=== PATIENT | male | born 1940 | race Caucasian/White ===

== ENCOUNTER → 2018-03-27 | Outpatient (CLI) | payer BC ==
[~2018-03-27] MED LIST: AMIT25TA9 PO; ASPI-555 PO; DULO60CA63 PO; FOLI1TAB15 PO; GABA-318 PO; LORA1TAB3 PO; METO-409 PO; NIFE60TA81 PO; PREG50 PO; ROSU20TA30 PO
== END | disposition home or self-care (01) ==
LOC: SHCH 07:47
PROVIDERS: ATTEND Internal Medicine Cardiovascular Disease
DX: I70.0 Atherosclerosis of aorta (principal); I10 Essential (primary) hypertension; Z72.89 Other problems related to lifestyle
CPT/HCPCS: 93975

== ENCOUNTER 2018-08-14 06:47 | Day surgery (SDC) | payer BC ==
[2018-08-08 10:10] LABS: BASOPHILS % (AUTO) 1.5 % (0.0-5.0); EOSINOPHILS % (AUTO) 3.8 % (0.0-8.0); HEMATOCRIT 39.6 % (42-54); LYMPHOCYTES % (AUTO) 26.3 % (21.0-51.0); MEAN CORPUSCULAR HEMOGLOBIN 33.8 pg (27.0-33.0); MEAN CORPUSCULAR HGB CONC 34.5 g/dL (32.0-36.0); MONOCYTES % (AUTO) 12.3 % (3.0-13.0); NEUTROPHILS % (AUTO) 56.1 % (40.0-77.0); PLATELET COUNT (AUTO) 203 K/uL (130-400); RED BLOOD CELL COUNT(AUTO) 4.04 MIL/uL (4.50-6.20); RED CELL DISTRIBUTION WIDTH 12.9 % (11.0-15.5); WHITE BLOOD COUNT (AUTO) 4.2 K/uL (4.8-10.8)
[2018-08-08 10:17] LABS: CREATININE 0.9 mg/dL (0.5-1.5); POTASSIUM 4.4 mmol/L (3.5-5.1)
[2018-08-08 11:07] VITALS: BP 140/72
--- NOTE | 2018-08-08 11:21 | NUR ---
NURSING: REPORTED ABNORMAL EKG TO ANESTHESIA , NO NEW ORDERS RECEIVED, OK TO PROCEED.
[2018-08-14] VITALS (11 sets, daily range): BP systolic 133–159; BP diastolic 59–81
[~2018-08-14] VITALS: Ht 162.6 cm; Wt 80.3 kg
[2018-08-14] MEDS: CEFAZOLIN SODIUM 1 GM VIAL IVP SCH ×2 (05:00→09:00)
[~2018-08-14 06:47] MED LIST changes: -AMIT25TA9 PO; -GABA-318 PO; +VENL75TA63 PO
[2018-08-14] MEDS ORDERED: LACTATED RINGERS 1000ML 1,000 ML IV ONE (07:56)
[2018-08-14] MEDS ORDERED: MIDAZOLAM HCL 1 MG/ML 2ML VIAL ONE (08:38)
[2018-08-14] MEDS ORDERED: FENTANYL CITRATE PF 50 MCG/1 ML 2ML VIAL ONE (08:39)
--- NOTE | 2018-08-14 11:15 | NUR ---
PATIENT DISCHARGED IN NO DISTRESS, DRESSING TO RIGHT HAND IS CLEAN AND DRY. PATIENT STATES FEELING WELL. JUST CAME IN TO TAKE HIM HOME.
== END 2018-08-14 11:15 | disposition home or self-care (01) ==
LOC: DAH 06:47
PROVIDERS: ATTEND Neurological Surgery
DX: G56.01 Carpal tunnel syndrome, right upper limb (principal); Z98.890 Other specified postprocedural states; K21.9 Gastro-esophageal reflux disease without esophagitis; I10 Essential (primary) hypertension; Z79.899 Other long term (current) drug therapy; I45.10 Unspecified right bundle-branch block
CPT/HCPCS: 36415; 64721; 80048; 85025; 93005; A4218; J0690; J2250; J3010; J7120

== ENCOUNTER 2019-11-17 08:23 | Emergency (ER) | payer BC, MEDICARE ==
[~2019-11-17 08:23] MED LIST changes: -ASPI-555 PO; +CLON0.1T PO; +DULO60CA44 PO; -DULO60CA63 PO; -LORA1TAB3 PO; +LORA2TAB2 PO; +METO50TA18 PO; +NIFE30TA5 PO; -NIFE60TA81 PO; -ROSU20TA30 PO; +ROSU20TA31 PO; +VENL-61 PO; -VENL75TA63 PO
[2019-11-17] MEDS ORDERED: METHYLPREDNISOLONE SOD SUCC 125MG/2ML VIAL ONE (10:04)
[2019-11-17] MEDS ORDERED: AMPICILLIN SODIUM/SULBACTAM NA 1.5GM VIAL ONE (11:22)
[2019-11-17] MEDS ORDERED: SODIUM CHLORIDE 0.9% 100 ML IV ONE (11:23)
== END 2019-11-17 10:29 | disposition home or self-care (01) ==
LOC: EDH 08:23
DX: M25.462 Effusion, left knee (principal); M23.92 Unspecified internal derangement of left knee; I10 Essential (primary) hypertension; E78.00 Pure hypercholesterolemia, unspecified; Z87.891 Personal history of nicotine dependence
CPT/HCPCS: 73562; 96372; 99284; J0295; J2930

== ENCOUNTER → 2020-04-02 | Outpatient (CLI) | payer BC | END | disposition home or self-care (01) | LOC: SHCH 09:33 | PROVIDERS: ATTEND Internal Medicine Cardiovascular Disease | DX: I70.203 Unspecified atherosclerosis of native arteries of extremities, bilateral legs (principal) | CPT/HCPCS: 93925 ==

== ENCOUNTER → 2020-08-03 | Outpatient (CLI) | payer BC ==
[~2020-08-03] MED LIST changes: +VENL-191 PO; -VENL-61 PO
== END | disposition home or self-care (01) ==
LOC: SHCH 09:24
PROVIDERS: ATTEND Internal Medicine Cardiovascular Disease
DX: I10 Essential (primary) hypertension (principal)
CPT/HCPCS: 93975

== ENCOUNTER 2020-08-13 12:00 | Inpatient (IN) | payer BC ==
[~2020-08-13] VITALS: Ht 167.6 cm; Wt 78.6 kg
[2020-08-13 10:44] LABS: BASOPHILS % (AUTO) 0.9 % (0.0-5.0); EOSINOPHILS % (AUTO) 2.7 % (0.0-8.0); HEMATOCRIT 42.1 % (42-54); MONOCYTES % (AUTO) 11.4 % (3.0-13.0); NEUTROPHILS % (AUTO) 63.7 % (40.0-77.0); PLATELET COUNT (AUTO) 251 K/uL (130-400); RED BLOOD CELL COUNT(AUTO) 4.34 MIL/uL (4.50-6.20); WHITE BLOOD COUNT (AUTO) 5.9 K/uL (4.8-10.8)
[2020-08-13 10:53] LABS: CREATININE 0.9 mg/dL (0.5-1.5); POTASSIUM 4.4 mmol/L (3.5-5.1)
[~2020-08-13 12:00] MED LIST changes: -CLON0.1T PO; -DULO60CA44 PO; +DULO60CA45 PO; -METO-409 PO; -PREG50 PO; -ROSU20TA31 PO; -VENL-191 PO
[2020-08-18 11:26] VITALS: BP 136/66
[2020-08-18] MEDS ORDERED: VENL75TA89 PO (13:30)
[2020-08-18] MEDS ORDERED: MELA10TA2 PO (13:30)
[2020-08-18] MEDS ORDERED: ALPH600C3 PO (13:30)
[2020-08-18] MEDS ORDERED: ASCO100031 PO (13:30)
[2020-08-18] MEDS ORDERED: ZINC220T4 PO (13:30)
[2020-08-18] MEDS ORDERED: MAGN400T40 PO (13:30)
[2020-08-18] MEDS ORDERED: ASPI-1443 PO (13:30)
[2020-08-18] MEDS ORDERED: VITAMIN B6 PO (13:30)
[2020-08-18] MEDS ORDERED: TUMERIC EXTRACT PO (13:30)
[2020-08-18] MEDS ORDERED: VITAMIN B12 PO (13:30)
[2020-08-19] VITALS (19 sets, daily range): BP systolic 107–163; BP diastolic 45–78
[2020-08-19] MEDS ORDERED: LACTATED RINGERS 1000ML 1,000 ML IV ONE (09:16)
[2020-08-19] MEDS ORDERED: PREG150C PO (09:29)
[2020-08-19] MEDS: CEFAZOLIN SODIUM 1 GM VIAL ONE ×2 (14:26→15:30)
[2020-08-19] MEDS ORDERED: LIDOCAINE PF 100MG/5ML (2%) SYRINGE 5ML ONE (15:19)
[2020-08-19] MEDS ORDERED: SUCCINYLCHOLINE CHLORIDE 20 MG/ML 10 ML VIAL ONE (15:19)
[2020-08-19] MEDS ORDERED: ROCURONIUM 10MG/1ML SYR 10 MG/ML ML ONE ×2 (15:19→16:52)
[2020-08-19] MEDS ORDERED: PROPOFOL 10 MG/ML 20ML VIAL IV ONE (15:19)
[2020-08-19] MEDS ORDERED: CEFAZOLIN SODIUM 1 GM VIAL ONE ×2 (15:23→16:37)
[2020-08-19] MEDS ORDERED: ROPIVACAINE 0.5% 5MG/ML 30ML IJ ONE (15:29)
[2020-08-19] MEDS ORDERED: EPHEDRINE SULFATE 50 MG/ML AMPULE ONE (15:36)
[2020-08-19] MEDS ORDERED: GLYCOPYRROLATE 1 MG/5 ML SYRINGE ONE (15:43)
[2020-08-19] MEDS ORDERED: NEOSTIGMINE 5MG/5ML SYR IV ONE (15:43)
[2020-08-19] MEDS ORDERED: DEXAMETHASONE SOD PHOSPHATE 10MG/ML 1ML VIAL ONE (15:47)
[2020-08-19] MEDS ORDERED: ONDANSETRON 4MG INJ ONE (15:47)
[2020-08-19] MEDS ORDERED: FENTANYL CITRATE PF 50 MCG/1 ML 2ML VIAL ONE (16:06)
[2020-08-19] MEDS ORDERED: PHENYLEPHRINE HCL 10 MG/ML 1ML VIAL IV ONE (16:47)
[2020-08-19] MEDS ORDERED: LIDOCAINE HCL-MPF 1% 2ML VIAL IV PRN (19:30)
[2020-08-19] MEDS ORDERED: POTASSIUM CHLORIDE 20MEQ/100ML 100 ML IV PRN (19:30)
[2020-08-19] MEDS ORDERED: CALCIUM CARB 500MG PO PRN (19:30)
[2020-08-19] MEDS ORDERED: OXYCODONE HCL 5 MG TAB PO PRN ×2 (19:30)
[2020-08-19] MEDS: ACETAMINOPHEN 500 MG TABLET PO SCH (19:30)
[2020-08-19] MEDS ORDERED: TRAMADOL HCL 50 MG TABLET PO PRN (19:30)
[2020-08-19] MEDS ORDERED: KCL 20 MEQ ERTAB PO PRN (19:30)
[2020-08-19] MEDS ORDERED: TEMAZEPAM 15 MG CAPSULE PO PRN (19:30)
[2020-08-19] MEDS ORDERED: FERROUS FUMARATE 324 MG TABLET PO PRN (19:30)
[2020-08-19] MEDS ORDERED: POTASSIUM CHLORIDE 10% ELIXIR 20 MEQ/15 ML UDCUP PO PRN (19:30)
[2020-08-19] MEDS: 0.9%NACL 1000ML 1,000 ML IV SCH (19:30)
[2020-08-19] MEDS ORDERED: DiphenhydrAMINE HCL 50 MG/ML VIAL IVP PRN (19:30)
[2020-08-19] MEDS ORDERED: PROMETHAZINE HCL 25 MG/ML 1ML AMPULE IM PRN (19:30)
[2020-08-19] MEDS ORDERED: DIPHENHYDRAMINE HCL 25 MG CAPSULE PO PRN (19:30)
[2020-08-19] MEDS ORDERED: KETOROLAC 15MG/ML VIAL (15MG/ML) IV PRN (19:30)
[2020-08-19] MEDS: CEFAZOLIN SODIUM 1 GM VIAL IVP SCH (19:30)
[2020-08-19] MEDS ORDERED: PREGABALIN 100 MG CAPSULE PO PRN (21:15)
[2020-08-19] MEDS: FAMOTIDINE 20MG TAB PO SCH (22:01)
[2020-08-19] MEDS: CELECOXIB 200 MG CAP PO SCH (22:01)
[2020-08-20 04:00] VITALS: BP 113/71
[2020-08-20] MEDS: CEFAZOLIN SODIUM 1 GM VIAL IVP SCH (04:06)
[2020-08-20] MEDS: 0.9%NACL 1000ML 1,000 ML IV SCH ×2 (04:06→15:30)
[2020-08-20] MEDS: ACETAMINOPHEN 500 MG TABLET PO SCH ×3 (04:06→20:44)
[2020-08-20 05:07] LABS: HEMATOCRIT 35.5 % (42-54); MEAN CORPUSCULAR HEMOGLOBIN 31.5 pg (27.0-33.0); MEAN CORPUSCULAR VOLUME 95.7 fL (79-99); RED BLOOD CELL COUNT(AUTO) 3.71 MIL/uL (4.50-6.20); RED CELL DISTRIBUTION WIDTH 13.7 % (11.0-15.5); WHITE BLOOD COUNT (AUTO) 8.3 K/uL (4.8-10.8)
[2020-08-20 05:19] LABS: CREATININE 1.1 mg/dL (0.5-1.5)
[2020-08-20 08:06] VITALS: BP 190/84
[2020-08-20] MEDS: ZINC SULFATE 50 MG PO SCH (09:00)
[2020-08-20] MEDS: PYRIDOXINE HCL 50 MG TABLET PO SCH (09:00)
[2020-08-20] MEDS: ASCORBIC ACID 500 MG TAB PO SCH (09:26)
[2020-08-20] MEDS: MAGNESIUM OXIDE 400 MG TABLET PO SCH ×2 (09:26→20:45)
[2020-08-20] MEDS: FOLIC ACID 1 MG TABLET PO SCH (09:26)
[2020-08-20] MEDS: METOPROLOL TARTRATE 50 MG TAB PO SCH ×2 (09:26→20:45)
[2020-08-20] MEDS: NIFEDIPINE ER 30 MG TAB PO SCH ×2 (09:27→20:45)
[2020-08-20] MEDS: FAMOTIDINE 20MG TAB PO SCH ×2 (09:27→20:45)
[2020-08-20] MEDS: ENOXAPARIN SODIUM 40 MG/0.4 ML SYRINGE SQ SCH (09:27)
[2020-08-20] MEDS: CELECOXIB 200 MG CAP PO SCH ×2 (09:27→20:45)
[2020-08-20] MEDS: TAMSULOSIN HCL 0.4 MG CAP.ER.24H PO SCH (09:27)
[2020-08-20] MEDS: VENLAFAXINE HCL 75 MG TAB PO SCH ×2 (09:27→20:45)
[2020-08-20] MEDS: POLYETHYLENE GLYCOL 3350 17 GM POWD.PACK PO SCH (09:27)
[2020-08-20 11:57] VITALS: BP 150/72
[2020-08-20] MEDS: PSYLLIUM SEED 1 EACH PACKET PO SCH (12:00)
[2020-08-20 16:00] VITALS: BP 161/71
[2020-08-20 20:00] VITALS: BP 134/64
[2020-08-20] MEDS: **HM**(Melatonin 10 MG PO SCH (20:44)
[2020-08-20] MEDS: ALPHA LIPOIC ACID 600 MG PO SCH (20:44)
[2020-08-20] MEDS: ASPIRIN 81 MG EC TAB PO SCH (20:44)
[2020-08-20] MEDS: DULOXETINE HCL 30 MG CAP PO SCH (20:45)
[2020-08-20] MEDS: LORAZEPAM 2 MG TABLET PO SCH (20:45)
[2020-08-21] VITALS (8 sets, daily range): BP systolic 91–156; BP diastolic 42–75
[2020-08-21] MEDS: ACETAMINOPHEN 500 MG TABLET PO SCH ×3 (04:03→19:30)
[2020-08-21 05:10] LABS: HEMATOCRIT 35.9 % (42-54); MEAN CORPUSCULAR HEMOGLOBIN 31.2 pg (27.0-33.0); MEAN CORPUSCULAR HGB CONC 32.3 g/dL (32.0-36.0); MEAN CORPUSCULAR VOLUME 96.5 fL (79-99); RED BLOOD CELL COUNT(AUTO) 3.72 MIL/uL (4.50-6.20); RED CELL DISTRIBUTION WIDTH 13.7 % (11.0-15.5); WHITE BLOOD COUNT (AUTO) 5.6 K/uL (4.8-10.8)
[2020-08-21 05:27] LABS: CREATININE 0.9 mg/dL (0.5-1.5); POTASSIUM 3.5 mmol/L (3.5-5.1)
[2020-08-21] MEDS: ZINC SULFATE 50 MG PO SCH (09:00)
[2020-08-21] MEDS: ASCORBIC ACID 500 MG TAB PO SCH (10:25)
[2020-08-21] MEDS: PYRIDOXINE HCL 50 MG TABLET PO SCH (10:25)
[2020-08-21] MEDS: CELECOXIB 200 MG CAP PO SCH ×2 (10:25→21:36)
[2020-08-21] MEDS: TAMSULOSIN HCL 0.4 MG CAP.ER.24H PO SCH (10:25)
[2020-08-21] MEDS: METOPROLOL TARTRATE 50 MG TAB PO SCH ×2 (10:25→20:20)
[2020-08-21] MEDS: MAGNESIUM OXIDE 400 MG TABLET PO SCH ×2 (10:25→21:36)
[2020-08-21] MEDS: FAMOTIDINE 20MG TAB PO SCH ×2 (10:25→21:36)
[2020-08-21] MEDS: POLYETHYLENE GLYCOL 3350 17 GM POWD.PACK PO SCH (10:25)
[2020-08-21] MEDS: FOLIC ACID 1 MG TABLET PO SCH (10:25)
[2020-08-21] MEDS: VENLAFAXINE HCL 75 MG TAB PO SCH ×2 (10:26→21:36)
[2020-08-21] MEDS: NIFEDIPINE ER 30 MG TAB PO SCH ×2 (10:26→20:20)
[2020-08-21] MEDS: ENOXAPARIN SODIUM 40 MG/0.4 ML SYRINGE SQ SCH (10:27)
[2020-08-21] MEDS: PSYLLIUM SEED 1 EACH PACKET PO SCH (12:00)
[2020-08-21] MEDS ORDERED: BISACODYL 5 MG TABLET.DR PO PRN (19:30)
[2020-08-21] MEDS: **HM**(Melatonin 10 MG PO SCH (20:20)
[2020-08-21] MEDS: ALPHA LIPOIC ACID 600 MG PO SCH (21:00)
[2020-08-21] MEDS: LORAZEPAM 2 MG TABLET PO SCH (21:00)
[2020-08-21] MEDS: DULOXETINE HCL 30 MG CAP PO SCH (21:36)
[2020-08-21] MEDS: ASPIRIN 81 MG EC TAB PO SCH (21:36)
[2020-08-22 04:00] VITALS: BP 161/82
[2020-08-22] MEDS: ACETAMINOPHEN 500 MG TABLET PO SCH ×3 (04:01→20:34)
[2020-08-22 08:04] VITALS: BP 161/72
[2020-08-22] MEDS: POLYETHYLENE GLYCOL 3350 17 GM POWD.PACK PO SCH (09:00)
[2020-08-22] MEDS: ZINC SULFATE 50 MG PO SCH (09:00)
[2020-08-22] MEDS: CELECOXIB 200 MG CAP PO SCH ×2 (10:25→20:34)
[2020-08-22] MEDS: METOPROLOL TARTRATE 50 MG TAB PO SCH ×2 (10:25→20:38)
[2020-08-22] MEDS: PYRIDOXINE HCL 50 MG TABLET PO SCH (10:25)
[2020-08-22] MEDS: ASCORBIC ACID 500 MG TAB PO SCH (10:25)
[2020-08-22] MEDS: MAGNESIUM OXIDE 400 MG TABLET PO SCH ×2 (10:26→20:34)
[2020-08-22] MEDS: NIFEDIPINE ER 30 MG TAB PO SCH ×2 (10:26→20:39)
[2020-08-22] MEDS: FOLIC ACID 1 MG TABLET PO SCH (10:26)
[2020-08-22] MEDS: VENLAFAXINE HCL 75 MG TAB PO SCH ×2 (10:26→20:35)
[2020-08-22] MEDS: ENOXAPARIN SODIUM 40 MG/0.4 ML SYRINGE SQ SCH (10:26)
[2020-08-22] MEDS: TAMSULOSIN HCL 0.4 MG CAP.ER.24H PO SCH (10:26)
[2020-08-22] MEDS: FAMOTIDINE 20MG TAB PO SCH ×2 (10:26→20:39)
[2020-08-22 11:12] VITALS: BP 98/53
[2020-08-22] MEDS: PSYLLIUM SEED 1 EACH PACKET PO SCH (12:00)
[2020-08-22 16:05] VITALS: BP 165/68
[2020-08-22] MEDS ORDERED: BISACODYL 10 MG SUPP.RECT RC PRN (19:30)
[2020-08-22 19:51] VITALS: BP 107/53
[2020-08-22] MEDS: ASPIRIN 81 MG EC TAB PO SCH (20:34)
[2020-08-22] MEDS: DULOXETINE HCL 30 MG CAP PO SCH (20:34)
[2020-08-22] MEDS: LORAZEPAM 2 MG TABLET PO SCH (20:35)
[2020-08-22] MEDS: ALPHA LIPOIC ACID 600 MG PO SCH (20:37)
[2020-08-22] MEDS: **HM**(Melatonin 10 MG PO SCH (20:38)
[2020-08-23] VITALS: BP 157/90
[2020-08-23] MEDS: ACETAMINOPHEN 500 MG TABLET PO SCH ×4 (03:30→19:30)
[2020-08-23 04:00] VITALS: BP 141/74
[2020-08-23 07:57] VITALS: BP 161/76
[2020-08-23] MEDS: ZINC SULFATE 50 MG PO SCH (09:00)
[2020-08-23] MEDS: POLYETHYLENE GLYCOL 3350 17 GM POWD.PACK PO SCH (09:00)
[2020-08-23] MEDS: VENLAFAXINE HCL 75 MG TAB PO SCH ×2 (10:35→20:52)
[2020-08-23] MEDS: FOLIC ACID 1 MG TABLET PO SCH (10:35)
[2020-08-23] MEDS: FAMOTIDINE 20MG TAB PO SCH ×2 (10:35→20:52)
[2020-08-23] MEDS: CELECOXIB 200 MG CAP PO SCH ×2 (10:35→20:52)
[2020-08-23] MEDS: TAMSULOSIN HCL 0.4 MG CAP.ER.24H PO SCH (10:35)
[2020-08-23] MEDS: PYRIDOXINE HCL 50 MG TABLET PO SCH (10:36)
[2020-08-23] MEDS: NIFEDIPINE ER 30 MG TAB PO SCH ×2 (10:36→20:52)
[2020-08-23] MEDS: MAGNESIUM OXIDE 400 MG TABLET PO SCH ×2 (10:36→20:52)
[2020-08-23] MEDS: METOPROLOL TARTRATE 50 MG TAB PO SCH ×2 (10:36→20:52)
[2020-08-23] MEDS: ASCORBIC ACID 500 MG TAB PO SCH (10:36)
[2020-08-23] MEDS: ENOXAPARIN SODIUM 40 MG/0.4 ML SYRINGE SQ SCH (10:37)
[2020-08-23 11:16] VITALS: BP 148/98
[2020-08-23] MEDS: PSYLLIUM SEED 1 EACH PACKET PO SCH (11:36)
[2020-08-23 15:53] VITALS: BP 146/72
[2020-08-23 19:44] VITALS: BP 124/57
[2020-08-23] MEDS: ASPIRIN 81 MG EC TAB PO SCH (20:52)
[2020-08-23] MEDS: LORAZEPAM 2 MG TABLET PO SCH (20:52)
[2020-08-23] MEDS: DULOXETINE HCL 30 MG CAP PO SCH (20:52)
[2020-08-23] MEDS: **HM**(Melatonin 10 MG PO SCH (20:57)
[2020-08-23] MEDS: ALPHA LIPOIC ACID 600 MG PO SCH (20:57)
[2020-08-24] VITALS (7 sets, daily range): BP systolic 101–181; BP diastolic 44–69
[2020-08-24] MEDS: ACETAMINOPHEN 500 MG TABLET PO SCH ×3 (03:30→19:30)
[2020-08-24] MEDS: MAGNESIUM OXIDE 400 MG TABLET PO SCH ×2 (08:08→20:50)
[2020-08-24] MEDS: NIFEDIPINE ER 30 MG TAB PO SCH ×2 (08:08→20:49)
[2020-08-24] MEDS: VENLAFAXINE HCL 75 MG TAB PO SCH ×2 (08:08→20:49)
[2020-08-24] MEDS: METOPROLOL TARTRATE 50 MG TAB PO SCH ×2 (08:09→20:50)
[2020-08-24] MEDS: PYRIDOXINE HCL 50 MG TABLET PO SCH (08:09)
[2020-08-24] MEDS: FAMOTIDINE 20MG TAB PO SCH ×2 (08:09→20:50)
[2020-08-24] MEDS: CELECOXIB 200 MG CAP PO SCH ×2 (08:09→20:49)
[2020-08-24] MEDS: FOLIC ACID 1 MG TABLET PO SCH (08:09)
[2020-08-24] MEDS: ASCORBIC ACID 500 MG TAB PO SCH (08:09)
[2020-08-24] MEDS: ZINC SULFATE 50 MG PO SCH (08:10)
[2020-08-24] MEDS: ENOXAPARIN SODIUM 40 MG/0.4 ML SYRINGE SQ SCH (08:10)
[2020-08-24] MEDS: TAMSULOSIN HCL 0.4 MG CAP.ER.24H PO SCH (08:12)
[2020-08-24] MEDS: POLYETHYLENE GLYCOL 3350 17 GM POWD.PACK PO SCH (08:13)
[2020-08-24] MEDS ORDERED: ACET-2743 PO (08:43)
[2020-08-24] MEDS ORDERED: ASPI-1443 PO (08:43)
[2020-08-24] MEDS ORDERED: CELE200 PO (08:43)
[2020-08-24] MEDS: PSYLLIUM SEED 1 EACH PACKET PO SCH (12:00)
[2020-08-24] MEDS: DULOXETINE HCL 30 MG CAP PO SCH (20:49)
[2020-08-24] MEDS: LORAZEPAM 2 MG TABLET PO SCH (20:50)
[2020-08-24] MEDS: ASPIRIN 81 MG EC TAB PO SCH (20:50)
[2020-08-24] MEDS: ALPHA LIPOIC ACID 600 MG PO SCH (20:54)
[2020-08-24] MEDS: **HM**(Melatonin 10 MG PO SCH (20:55)
[2020-08-25 00:25] VITALS: BP 138/62
[2020-08-25] MEDS: ACETAMINOPHEN 500 MG TABLET PO SCH ×2 (03:30→11:30)
[2020-08-25 04:15] VITALS: BP 143/54
[2020-08-25 08:17] VITALS: BP 125/62
[2020-08-25] MEDS: ZINC SULFATE 50 MG PO SCH (09:00)
[2020-08-25] MEDS: TAMSULOSIN HCL 0.4 MG CAP.ER.24H PO SCH (09:00)
[2020-08-25] MEDS: ASCORBIC ACID 500 MG TAB PO SCH (09:28)
[2020-08-25] MEDS: VENLAFAXINE HCL 75 MG TAB PO SCH (09:28)
[2020-08-25] MEDS: CELECOXIB 200 MG CAP PO SCH (09:28)
[2020-08-25] MEDS: PYRIDOXINE HCL 50 MG TABLET PO SCH (09:28)
[2020-08-25] MEDS: FOLIC ACID 1 MG TABLET PO SCH (09:28)
[2020-08-25] MEDS: MAGNESIUM OXIDE 400 MG TABLET PO SCH (09:28)
[2020-08-25] MEDS: FAMOTIDINE 20MG TAB PO SCH (09:29)
[2020-08-25] MEDS: METOPROLOL TARTRATE 50 MG TAB PO SCH (09:29)
[2020-08-25] MEDS: NIFEDIPINE ER 30 MG TAB PO SCH (09:29)
[2020-08-25] MEDS: ENOXAPARIN SODIUM 40 MG/0.4 ML SYRINGE SQ SCH (09:30)
[2020-08-25] MEDS: POLYETHYLENE GLYCOL 3350 17 GM POWD.PACK PO SCH (09:30)
[2020-08-25] MEDS: PSYLLIUM SEED 1 EACH PACKET PO SCH (11:59)
[2020-08-25 12:51] VITALS: BP 153/61
== END 2020-08-25 15:45 | DRG 502 ==
LOC: EDSTATUS 12:00 → OBSVTOIN 08-19 07:22 → DAHIP 08-19 07:22 → 3AH 08-19 18:58
PROVIDERS: ADMIT Orthopaedic Surgery; ATTEND Orthopaedic Surgery
PROC: 0LUP0KZ Supplement Left Lower Leg Tendon with Nonautologous Tissue Substitute, Open Approach (ICD-10-PCS; 2020-08-19)
PROC: 3E0T3BZ Introduction of Anesthetic Agent into Peripheral Nerves and Plexi, Percutaneous Approach (ICD-10-PCS; 2020-08-19)
PROC: 3E0T33Z Introduction of Anti-inflammatory into Peripheral Nerves and Plexi, Percutaneous Approach (ICD-10-PCS; 2020-08-19)
PROC: 0LBP0ZZ Excision of Left Lower Leg Tendon, Open Approach (ICD-10-PCS; principal; 2020-08-19 11:00)
DX: S76.112A Strain of left quadriceps muscle, fascia and tendon, initial encounter (principal); D64.9 Anemia, unspecified; I10 Essential (primary) hypertension; E78.5 Hyperlipidemia, unspecified; I25.10 Atherosclerotic heart disease of native coronary artery without angina pectoris; G62.9 Polyneuropathy, unspecified; Z20.822 Contact with and (suspected) exposure to COVID-19; Z90.49 Acquired absence of other specified parts of digestive tract; Z91.19 Patient's noncompliance with other medical treatment and regimen; Y93.89 Activity, other specified; Y92.89 Other specified places as the place of occurrence of the external cause; Y99.8 Other external cause status
CPT/HCPCS: 36415; 80048; 85025; 85027; 87641; 93005; 97039; G0378; J0330; J0690; J1100; J1650; J2001; J2370; J2405; J2704; J2710; J2795; J3010; J3490; J7120; U0003

== ENCOUNTER → 2023-01-19 | Outpatient (CLI) | payer BC ==
[~2023-01-19] MED LIST changes: +ACET-2743 PO; +ALPH600C3 PO; +ASCO100031 PO; +ASPI-1443 PO; +CELE200 PO; +CLON0.1T PO; -LORA2TAB2 PO; +LORA2TAB80 PO; +MAGN400T40 PO; +MELA10TA2 PO; +PREG150C PO; +TUMERIC EXTRACT PO; +VENL-191 PO; +VITAMIN B12 PO; +VITAMIN B6 PO; +ZINC220T4 PO
[2023-01-19 16:44] LABS: CREATININE 1.4 mg/dL (0.5-1.5)
== END | disposition home or self-care (01) ==
LOC: LAB 15:42
PROVIDERS: ATTEND Physician Assistant
DX: A42.1 Abdominal actinomycosis (principal)
CPT/HCPCS: 36415; 82565

== ENCOUNTER → 2023-01-27 | Outpatient (CLI) | payer BC, MEDICARE ==
[~2023-01-27] MED LIST changes: +IOHEXOL 350 MG/ML 100ML INFUS..BTL IV ONE; +IOHEXOL-350 50ML VIAL IV ONE
== END | disposition home or self-care (01) ==
LOC: RAH 10:15 → EDSTATUS 10:30
PROVIDERS: ATTEND Internal Medicine Cardiovascular Disease
DX: K57.30 Diverticulosis of large intestine without perforation or abscess without bleeding (principal); K42.9 Umbilical hernia without obstruction or gangrene; I73.9 Peripheral vascular disease, unspecified
CPT/HCPCS: 75635; Q9967 ×2

== ENCOUNTER → 2023-05-01 | Outpatient (CLI) | payer BC, MEDICARE ==
[~2023-05-01] MED LIST changes: -IOHEXOL 350 MG/ML 100ML INFUS..BTL IV ONE; -IOHEXOL-350 50ML VIAL IV ONE
[2023-05-01 09:49] LABS: POTASSIUM 3.6 mmol/L (3.5-5.1)
== END | disposition home or self-care (01) ==
LOC: LAB 08:39
PROVIDERS: ATTEND Internal Medicine Cardiovascular Disease
DX: I10 Essential (primary) hypertension (principal)
CPT/HCPCS: 36415; 80048

== ENCOUNTER → 2023-05-02 | Outpatient (CLI) | payer BC, MEDICARE ==
[~2023-05-02] MED LIST changes: +IOHEXOL 350 MG/ML 100ML INFUS..BTL IV ONE; +METOPROLOL TARTRATE 1 MG/ML 5ML VIAL IV ONE
== END | disposition home or self-care (01) ==
LOC: RAH 09:39
PROVIDERS: ATTEND Internal Medicine Cardiovascular Disease
DX: I25.10 Atherosclerotic heart disease of native coronary artery without angina pectoris (principal)
CPT/HCPCS: 75574; J3490; Q9967

== ENCOUNTER → 2023-05-05 | Outpatient (CLI) | payer BC, MEDICARE ==
[~2023-05-05] MED LIST changes: -IOHEXOL 350 MG/ML 100ML INFUS..BTL IV ONE; -METOPROLOL TARTRATE 1 MG/ML 5ML VIAL IV ONE
== END | disposition home or self-care (01) ==
LOC: RAH 12:59
PROVIDERS: ATTEND Internal Medicine Cardiovascular Disease
DX: I08.0 Rheumatic disorders of both mitral and aortic valves (principal); I25.10 Atherosclerotic heart disease of native coronary artery without angina pectoris
CPT/HCPCS: 93306